=== PATIENT | male | born 1980 | race African-American/Black ===

== ENCOUNTER 2016-08-31 11:13 | Inpatient (IN) | payer BC ==
[2016-08-31 11:29] VITALS: BMI 41.5
--- NOTE | 2016-08-31 12:02 | HP ---
CIWA Score - CIWA Score Nausea/Vomitin Muscle Tremors: 4-Moderate,w/Arms Extend Anxiety: 4-Mod. Anxious/Guarded Agitation: 2 Paroxysmal Sweats: 3 Orientation: 0-Oriented Tacttile Disturbances: 2-Mild Itch/Numbness/Burn Auditory Disturbances: 3-Moderate Harsh/Frighten Visual Disturbances: 0-None Headache: 0-None Present CIWA-Ar Total Score: 20 Admission ROS BHS - HPI Chief Complaint: "I want to get my life together so that I can get into better housing and move on with my life." Pt. is here to Detox from alcohol. Allergies/Adverse Reactions: Allergies Allergy/AdvReac Type Severity Reaction Status Date / Time Fish Containing Products Allergy Severe Swelling Verified 08/31/16 09:45 haloperidol [From Haldol] Allergy Severe Hives Verified 08/31/16 11:48 haloperidol lactate Allergy Severe Hives Verified 08/31/16 11:48 [From Haldol] History of Present Illness: Pt. is a 35 YO male here to Detox from Alcohol. Pt. has had previous detox admissions at [facility]. Pt. also intermittently uses Marijuana. Exam Limitations: Other (Memory Loss due to Head Injury during his teenage years.) - Ebola screening Have you traveled outside of the country in the last 21 days: No Have you had contact with anyone from an Ebola affected area: No Have you been sick,other than usual withdrawal symptoms: No Do you have a fever: No - Review of Systems Constitutional: Diaphoresis, Fever, Malaise, Night Sweats EENT: reports: No Symptoms Reported Respiratory: reports: Productive cough Cardiac: reports: Palpitations GI: reports: Diarrhea, Nausea, Vomiting : reports: No Symptoms Reported Musculoskeletal: reports: No Symptoms Reported Integumentary: reports: No Symptoms Reported Neuro: reports: Headache, Tremors Endocrine: reports: No Symptoms Reported Hematology: reports: No Symptoms Reported Psychiatric: reports: Judgement Intact, Mood/Affect Appropiate, Orientated x3, Anxious, Depressed Other Systems: Reviewed and Negative Patient History - Patient Medical History Hx Anemia: No Hx Asthma: No Hx Chronic Obstructive Pulmonary Disease (COPD): No Hx Cancer: No Hx Cardiac Disorders: No Hx Congestive Heart Failure: No Hx Hypertension: Yes (Treated with Exercise only.) Hx Hypercholesterolemia: No Hx Pacemaker: No HX Cerebrovascular Accident: No Hx Seizures: No Hx Dementia: No Hx Diabetes: No Hx Gastrointestinal Disorders: No Hx Liver Disease: No Hx Genitourinary Disorders: No Hx Sexually Transmitted Disorders: No Hx Renal Disease (ESRD): No Hx Thyroid Disease: No Hx Human Immunodeficiency Virus (HIV): No (Last Tested approx. 6 months ago: NEGATIVE.) Hx Hepatitis C: No (Last Tested approx. 1 year ago: NEGATIVE.) Hx Depression: Yes (On meds.) Hx Suicide Attempt: No (PATIENT DENIES CURRENT SI / HI.) Hx Bipolar Disorder: Yes (No current medication; Prozac and Risperdal in past.) Hx Schizophrenia: No - Patient Surgical History Past Surgical History: No Hx Neurologic Surgery: No Hx Cataract Extraction: No Hx Cardiac Surgery: No Hx Lung Surgery: No Hx Breast Surgery: No Hx Breast Biopsy: No Hx Abdominal Surgery: No Hx Appendectomy: No Hx Cholecystectomy: No Hx Genitourinary Surgery: No Hx Section: No Hx Orthopedic Surgery: Yes (LEFT ANKLE FX) Anesthesia Reaction: No - PPD History Previous Implant?: Yes Documented Results: Negative w/proof Implanted On Prior [facility] Admission?: Yes Date: 06/11/16 Results: 0 MM PPD to be Administered?: No - Reproductive History Patient is a Female of Child Bearing Age (11 -55 yrs old): No (PATIENT IS MALE.) - Smoking Cessation Smoking history: Current every day smoker Have you smoked in the past 12 months: Yes Aproximately how many cigarettes per day: 3 Cigars Per Day: 0 Hx Chewing Tobacco Use: No Initiated information on smoking cessation: Yes 'Breaking Loose' booklet given: 08/31/16 (GIVEN ON UNIT.) - Substance & Tx. History Hx Alcohol Use: Yes Hx Substance Use: Yes Substance Use Type: Alcohol, Marijuana Hx Substance Use Treatment: Yes (Previous Detox admissions at [facility].) - Substances Abused Alcohol Route: Oral Frequency: 3-6 times per week Amount used: 5TH OF SMOOTH (3) 24 Age of first use: 14 Date of Last Use: 08/31/16 Marijuana/Hashish Route: Smoking Frequency: 3-6 times per week Amount used: 3-4 Joints. Age of first use: 15 Date of Last Use: 08/30/16 Family Disease History - Family Disease History Family History: Denies Admission Physical Exam S - Vital Signs Vital Signs: Vital Signs - 24 hr 08/31/16 11:26 Temperature 97.6 F Pulse Rate 70 Respiratory 18 Rate Blood Pressure 128/60 - Physical General Appearance: Yes: Nourished, Appropriately Dressed, Mild Distress, Tremorous, Irritable, Anxious HEENTM: Yes: Hearing grossly Normal, Normocephalic, Normal Voice, JAY, Pharynx Normal Respiratory: Yes: Chest Non-Tender, Lungs Clear, No Respiratory Distress Neck: Yes: No masses,lesions,Nodules, Supple, Trachea in good position Breast: Yes: Breast Exam Deferred Cardiology: Yes: Regular Rhythm, Regular Rate, S1, S2 Abdominal: Yes: Normal Bowel Sounds, Non Tender, Soft, Protuberent Genitourinary: Yes: Within Normal Limits Back: Yes: Normal Inspection Musculoskeletal: Yes: full range of Motion, Gait Steady Extremities: Yes: Normal Range of Motion, Non-Tender, Tremors Neurological: Yes: Fully Oriented, Alert, Normal Mood/Affect, Normal Response Integumentary: Yes: Normal Color, Dry, Warm Lymphatic: Yes: Within Normal Limits - Diagnostic (1) Alcohol dependence with uncomplicated withdrawal Current Visit: Yes Status: Acute (2) Bipolar disorder Current Visit: Yes Status: Chronic Qualifiers: Active/Remission status: remission status unspecified Qualified Code (s): F31.9 - Bipolar disorder, unspecified (3) Cannabis dependence Current Visit: Yes Status: Acute (4) Nicotine dependence Current Visit: Yes Status: Chronic Qualifiers: Nicotine product type: cigarettes Substance use status: uncomplicated Qualified Code(s): F17.210 - Nicotine dependence, cigarettes, uncomplicated (5) History of hypertension Current Visit: Yes Status: Suspected (6) History of head injury Current Visit: Yes Status: Chronic Cleared for Admission [facility] - Detox or Rehab [facility] Level of Care: Medically Managed (ADVISED PATIENT TO FOLLOW-UP WITH [facility] [employer] [facility] / REHAB MEDICAL PROIVDER AFTER DISCHARGE FROM DETOX FOR GENERAL MEDICAL ASSESSMENT.) Detox Regimen/Protocol: Librium [facility] Breath Alcohol Content Breath Alcohol Content: 0 Urine Drug Screen - Results Drug Screen Negative: No Urine Drug Screen Results: THC-Marijuana
[2016-08-31] MEDS ORDERED: LOPERAMIDE HCL 2 MG CAPSULE PO PRN (12:44)
[2016-08-31] MEDS ORDERED: ACETAMINOPHEN 325 MG TABLET (FP) PO PRN (12:44)
[2016-08-31] MEDS ORDERED: guaiFENesin/D-METHORPHAN HB 10 ML UNIT-DOSE CUPS PO PRN (12:44)
[2016-08-31] MEDS ORDERED: diphenhydrAMINE HCL 50 MG CAPSULE PO PRN (12:44)
[2016-08-31] MEDS ORDERED: P-EPHED 60MG/TRIPROLIDI 2.5MG TABLET PO PRN (12:44)
[2016-08-31] MEDS ORDERED: IBUPROFEN 400 MG TABLET (FP) PO PRN (12:44)
[2016-08-31] MEDS ORDERED: chlordiazePOXIDE HCL 25 MG CAPSULE PO PRN (12:44)
[2016-08-31] MEDS ORDERED: hydrOXYzine PAMOATE 50 MG CAPSULE (FP) PO PRN (12:44)
[2016-08-31] MEDS ORDERED: MAGNESIUM HYDROX 2400MG/30ML ORAL SUSPENSION 30 ML CUP PO PRN (12:44)
[2016-08-31] MEDS ORDERED: chlordiazePOXIDE HCL 25 MG CAPSULE PO ONE (12:44)
[2016-08-31] MEDS ORDERED: MAGNESIUM CITRATE 300 ML BOTTLE PO PRN (12:44)
[2016-08-31] MEDS ORDERED: MENTHOL/PHENOL 1 EACH UD MM PRN (12:44)
[2016-08-31] MEDS: NICOTINE 14 MG/24 HOURS TOPICAL PATCH TD SCH (13:32)
[2016-08-31] MEDS: MAG HYDROX/AL HYDROX/SIMETH 30 ML UNIT-DOSE CUP PO PRN (13:37)
[2016-08-31 17:45] LABS: URINE APPEARANCE CLEAR; URINE BILIRUBIN NEGATIVE (NEGATIVE); URINE BLOOD NEGATIVE (NEGATIVE); URINE COLOR STRAW; URINE GLUCOSE (UA) NEGATIVE (NEGATIVE); URINE KETONE NEGATIVE (NEGATIVE); URINE LEUK ESTERASE NEGATIVE (NEGATIVE); URINE NITRITE NEGATIVE (NEGATIVE); URINE PROTEIN NEGATIVE (NEGATIVE); URINE UROBILINOGEN NEGATIVE E.U./dl (0.2-1.0)
[2016-08-31] MEDS: chlordiazePOXIDE HCL 25 MG CAPSULE PO SCH ×2 (18:04→23:20)
[2016-08-31] MEDS: THIAMINE HCL 100 MG TABLET (FP) PO SCH (23:22)
[2016-09-01] MEDS: MAG HYDROX/AL HYDROX/SIMETH 30 ML UNIT-DOSE CUP PO PRN ×2 (05:06→18:37)
[2016-09-01] MEDS: chlordiazePOXIDE HCL 25 MG CAPSULE PO SCH ×4 (06:02→23:12)
[2016-09-01 10:21] LABS: MCH 29.7 pg (25.7-33.7); MCHC 33.8 g/dl (32.0-35.9); MEAN CELL VOLUME 87.9 fl (80-96); MEAN PLT VOLUME 9.4 fl (7.5-11.1); PLATELET COUNT 183 K/MM3 (134-434); RDW 14.3 % (11.9-15.9); WHITE BLOOD COUNT 6.5 K/mm3 (4.0-10.0)
--- NOTE | 2016-09-01 10:37 | PN ---
[facility] CIWA - CIWA Score Nausea/Vomitin Muscle Tremors: 3 Anxiety: 3 Agitation: 2 Paroxysmal Sweats: 1-Minimal Palms Moist Orientation: 0-Oriented Tacttile Disturbances: 1-Very Mild Itch/Numbness Auditory Disturbances: 1-Very Mild Visual Disturbances: 1-Very Mild Sensitivity Headache: 2-Mild CIWA-Ar Total Score: 17 BHS Progress Note (SOAP) Subjective: ALERT,IRRITABLE,ANXIOUS,INTERRUPTED SLEEP,TREMOR Objective: 09/01/16 10:34 Vital Signs Temperature 98.2 F 09/01/16 09:46 Pulse Rate 56 L 09/01/16 09:46 Respiratory Rate 18 09/01/16 09:46 Blood Pressure 125/69 09/01/16 09:46 O2 Sat by Pulse Oximetry (%) EKG NSR 09/01/16 10:36 Assessment: 09/01/16 10:35 Laboratory Last Values WBC 6.5 K/mm3 (4.0-10.0) 09/01/16 08:00 RBC 4.82 M/mm3 (4.00-5.60) 09/01/16 08:00 Hgb 14.3 GM/dL (11.7-16.9) 09/01/16 08:00 Hct 42.4 % (35.4-49) 09/01/16 08:00 MCV 87.9 fl (80-96) 09/01/16 08:00 MCHC 33.8 g/dl (32.0-35.9) 09/01/16 08:00 RDW 14.3 % (11.9-15.9) 09/01/16 08:00 Plt Count 183 K/MM3 (134-434) 09/01/16 08:00 MPV 9.4 fl (7.5-11.1) 09/01/16 08:00 Urine Color Straw 08/31/16 Unknown Urine Appearance Clear 08/31/16 Unknown Urine pH 6.0 (5.0-8.0) 08/31/16 Unknown Ur Specific [place] 1.008 (1.001-1.035) 08/31/16 Unknown Urine Protein Negative (NEGATIVE) 08/31/16 Unknown Urine Glucose (UA) Negative (NEGATIVE) 08/31/16 Unknown Urine Ketones Negative (NEGATIVE) 08/31/16 Unknown Urine Blood Negative (NEGATIVE) 08/31/16 Unknown Urine Nitrite Negative (NEGATIVE) 08/31/16 Unknown Urine Bilirubin Negative (NEGATIVE) 08/31/16 Unknown Urine Urobilinogen Negative E.U./dl (0.2-1.0) 08/31/16 Unknown Ur Leukocyte Esterase Negative (NEGATIVE) 08/31/16 Unknown LABS PENDING 09/01/16 10:36 09/01/16 10:36 WITHDRAWAL SYMPTOM Plan: CONTINUE DETOX
[2016-09-01] MEDS: PRENATAL VITAMINS W/ FOLIC ACID TABLET (FP) PO SCH (10:38)
[2016-09-01] MEDS: NICOTINE 14 MG/24 HOURS TOPICAL PATCH TD SCH (10:38)
[2016-09-01 10:59] LABS: ALBUMIN 3.2 g/dl (3.4-5.0); ALK PHOS 70 U/L (45-117); ANION GAP 10 (8-16); BILIRUBIN,TOTAL 0.3 mg/dL (0.2-1.0); CALCIUM 8.6 mg/dL (8.5-10.1); CO2 28 mmol/L (21-32); CREATININE 1.1 mg/dL (0.7-1.3); GLUCOSE,RANDOM 86 mg/dL (74-106); SGOT/AST 23 U/L (15-37); SGPT/ALT 50 U/L (12-78); TOT PROT 6.6 g/dl (6.4-8.2)
[2016-09-01 11:24] LABS: HIV 1 & 2 AB NEGATIVE; HIV 1 AGp24 NEGATIVE
[2016-09-01] MEDS: AMMONIUM LACTATE 12% LOTION 225 GM BOTTLE TP SCH (11:56)
[2016-09-01] MEDS: THIAMINE HCL 100 MG TABLET (FP) PO SCH (22:55)
[2016-09-02] MEDS: chlordiazePOXIDE HCL 25 MG CAPSULE PO SCH ×2 (05:22→10:23)
[2016-09-02] MEDS: MAG HYDROX/AL HYDROX/SIMETH 30 ML UNIT-DOSE CUP PO PRN ×2 (05:31→17:22)
[2016-09-02] MEDS ORDERED: ZOLPIDEM TARTRATE 5 MG TABLET PO PRN (08:08)
--- NOTE | 2016-09-02 10:19 | PN ---
S CIWA - CIWA Score Nausea/Vomitin-No Nausea/No Vomiting Muscle Tremors: 4-Moderate,w/Arms Extend Anxiety: 3 Agitation: 3 Paroxysmal Sweats: 3 Orientation: 0-Oriented Tacttile Disturbances: 0-None Auditory Disturbances: 0-None Visual Disturbances: 0-None Headache: 0-None Present CIWA-Ar Total Score: 13 BHS Progress Note (SOAP) Subjective: shakes sweats irritable agitation nausea Objective: 09/02/16 10:19 Vital Signs Temperature 98.2 F 09/02/16 10:10 Pulse Rate 73 09/02/16 10:10 Respiratory Rate 16 09/02/16 10:10 Blood Pressure 122/76 09/02/16 10:10 O2 Sat by Pulse Oximetry (%) Laboratory Tests 08/31/16 09/01/16 09/01/16 Unknown 08:00 08:00 WBC 6.5 RBC 4.82 Hgb 14.3 Hct 42.4 MCV 87.9 MCHC 33.8 RDW 14.3 Plt Count 183 MPV 9.4 Sodium Potassium Chloride Carbon Dioxide Anion Gap BUN Creatinine Creat Clearance w eGFR Random Glucose Calcium Total Bilirubin AST ALT Alkaline Phosphatase Total Protein Albumin Urine Color Straw Urine Appearance Clear Urine pH 6.0 Ur Specific [place] 1.008 Urine Protein Negative Urine Glucose (UA) Negative Urine Ketones Negative Urine Blood Negative Urine Nitrite Negative Urine Bilirubin Negative Urine Urobilinogen Negative Ur Leukocyte Esterase Negative RPR Titer HIV 1&2 Antibody Screen Negative HIV P24 Antigen Negative 09/01/16 09/01/16 08:00 08:00 WBC RBC Hgb Hct MCV MCHC RDW Plt Count MPV Sodium 141 Potassium 4.3 Chloride 103 Carbon Dioxide 28 Anion Gap 10 BUN 10 Creatinine 1.1 Creat Clearance w eGFR > 60 Random Glucose 86 Calcium 8.6 Total Bilirubin 0.3 D AST 23 ALT 50 Alkaline Phosphatase 70 D Total Protein 6.6 Albumin 3.2 L Urine Color Urine Appearance Urine pH Ur Specific [place] Urine Protein Urine Glucose (UA) Urine Ketones Urine Blood Urine Nitrite Urine Bilirubin Urine Urobilinogen Ur Leukocyte Esterase RPR Titer Nonreactive HIV 1&2 Antibody Screen HIV P24 Antigen awake/alert ambulating no acute distress Assessment: 09/02/16 10:19 withdrawal sx Plan: continue detox increase fluids zofran prn
[2016-09-02] MEDS: NICOTINE 14 MG/24 HOURS TOPICAL PATCH TD SCH (10:23)
[2016-09-02] MEDS: FLUoxetine HCL 10 MG CAPSULE (FP) PO SCH (10:23)
[2016-09-02] MEDS: PRENATAL VITAMINS W/ FOLIC ACID TABLET (FP) PO SCH (10:23)
[2016-09-02] MEDS: AMMONIUM LACTATE 12% LOTION 225 GM BOTTLE TP SCH (10:25)
[2016-09-02] MEDS ORDERED: ONDANSETRON *ODT* 4 MG TABLET SL PRN (10:33)
--- NOTE | 2016-09-02 11:32 | EKG ---
Test Reason : Blood Pressure : / mmHG Vent. Rate : 065 BPM Atrial Rate : 065 BPM P-R Int : 172 ms QRS Dur : 080 ms QT Int : 406 ms P-R-T Axes : 062 032 009 degrees QTc Int : 422 ms NORMAL SINUS RHYTHM NONSPECIFIC T WAVE ABNORMALITY ABNORMAL ECG NO PREVIOUS ECGS AVAILABLE Confirmed by ITA BAH MD ([id number]) on 09/02/2016 11:31:47 AM Referred By: Confirmed By:ITA BAH MD
--- NOTE | 2016-09-02 12:25 | CONSULT ---
[facility] Psychiatric Consult - Data Date of interview: 09/02/16 Admission source: [facility] Identifying data: This is 35 years old male with Bipolar Disorder history intoxicated with: Alcohol, Cannabis, Cocaine and PCP Substance Abuse History: Smoking Cessation. Smoking history: Current every day smoker. Have you smoked in the past 12 months: Yes. Aproximately how many cigarettes per day: 3. Cigars Per Day: 0. Hx Chewing Tobacco Use: No. Initiated information on smoking cessation: Yes. 'Breaking Loose' booklet given : 08/31/16 (GIVEN ON UNIT.). - Substance & Tx. History. Hx Alcohol Use: Yes. Hx Substance Use: Yes. Substance Use Type: Alcohol, Marijuana. Hx Substance Use Treatment: Yes (Previous Detox admissions at [facility] - Substances Abused. Alcohol. Route: Oral. Frequency: 3-6 times per week. Amount used: 5TH OF SMOOTH (3) 24. Age of first use: 14. Date of Last Use: 08/31/16. Marijuana/Hashish. Route: Smoking. Frequency: 3-6 times per week. Amount used : 3-4 Joints. Age of first use: 15. Date of Last Use: 08/30/16 Medical History: Head injury history, HTN Psychiatric History: Patient reports abhinav carry Bipolar disorder, preoccupied with medications, reports most recent admission at unknown historl, reports taking prior to admissions: Seroquel 25mg po qhs. Prozac 10mg poqd. ASmbien 10mg po qhs. Patient preoccupied with medications side affectes Physical/Sexual Abuse/Trauma History: Denies Additional Comment: Seroquel 25mg po qhs. Prozac 10mg poqd. ASmbien 10mg po qhs Mental Status Exam - Mental Status Exam Additional Comments: Seroquel 25mg po qhs. Prozac 10mg poqd. ASmbien 10mg po qhs Psychiatric Findings - Problem List ([place] 1, 2,3) (1) Alcohol dependence with uncomplicated withdrawal Current Visit: Yes Status: Acute (2) Cannabis dependence Current Visit: Yes Status: Acute (3) Bipolar disorder Current Visit: Yes Status: Chronic Qualifiers: Active/Remission status: remission status unspecified Qualified Code (s): F31.9 - Bipolar disorder, unspecified (4) Nicotine dependence Current Visit: Yes Status: Chronic Qualifiers: Nicotine product type: cigarettes Substance use status: uncomplicated Qualified Code(s): F17.210 - Nicotine dependence, cigarettes, uncomplicated (5) History of hypertension Current Visit: Yes Status: Suspected (6) Cocaine dependence Current Visit: No Status: Chronic Qualifiers: Substance use status: uncomplicated Qualified Code(s): F14.20 - Cocaine dependence, uncomplicated (7) PCP (phencyclidine) abuse Current Visit: No Status: Chronic - Initial Treatment Plan Initial Treatment Plan: Seroquel 25mg po qhs. Prozac 10mg poqd. ASmbien 10mg po qhs
[2016-09-02] MEDS: chlordiazePOXIDE 5 MG CAPSULE PO SCH ×2 (17:22→23:07)
[2016-09-02] MEDS: NICOTINE POLACRILEX 2 MG GUM BUC PRN ×2 (17:22→23:11)
[2016-09-02] MEDS ORDERED: ZOLPIDEM TARTRATE 10 MG TABLET (PARK CARE ONLY) PO PRN (22:00)
[2016-09-02] MEDS ORDERED: QUEtiapine FUMARATE 25 MG TABLET (FP) PO SCH (22:00)
[2016-09-02] MEDS: THIAMINE HCL 100 MG TABLET (FP) PO SCH (23:09)
[2016-09-03] MEDS: chlordiazePOXIDE 5 MG CAPSULE PO SCH ×2 (05:45→10:21)
[2016-09-03] MEDS: NICOTINE POLACRILEX 2 MG GUM BUC PRN (07:49)
[2016-09-03] MEDS: PRENATAL VITAMINS W/ FOLIC ACID TABLET (FP) PO SCH (10:19)
[2016-09-03] MEDS: FLUoxetine HCL 10 MG CAPSULE (FP) PO SCH (10:20)
[2016-09-03] MEDS: NICOTINE 14 MG/24 HOURS TOPICAL PATCH TD SCH (10:20)
[2016-09-03] MEDS: AMMONIUM LACTATE 12% LOTION 225 GM BOTTLE TP SCH (10:21)
--- NOTE | 2016-09-03 12:15 | PN ---
BHS Progress Note (SOAP) Subjective: interrupted sleep, sweats, headache Objective: 09/03/16 12:12 Vital Signs Temperature 97.9 F 09/03/16 09:51 Pulse Rate 113 H 09/03/16 09:51 Respiratory Rate 16 09/03/16 09:51 Blood Pressure 140/78 09/03/16 09:51 O2 Sat by Pulse Oximetry (%) Laboratory Tests 08/31/16 09/01/16 09/01/16 Unknown 08:00 08:00 WBC RBC Hgb Hct MCV MCHC RDW Plt Count MPV Sodium Potassium Chloride Carbon Dioxide Anion Gap BUN Creatinine Creat Clearance w eGFR Random Glucose Calcium Total Bilirubin AST ALT Alkaline Phosphatase Total Protein Albumin Urine Color Straw Urine Appearance Clear Urine pH 6.0 Ur Specific [place] 1.008 Urine Protein Negative Urine Glucose (UA) Negative Urine Ketones Negative Urine Blood Negative Urine Nitrite Negative Urine Bilirubin Negative Urine Urobilinogen Negative Ur Leukocyte Esterase Negative RPR Titer Hepatitis C Antibody 0.2 HIV 1&2 Antibody Screen Negative HIV P24 Antigen Negative 09/01/16 09/01/16 09/01/16 08:00 08:00 08:00 WBC 6.5 RBC 4.82 Hgb 14.3 Hct 42.4 MCV 87.9 MCHC 33.8 RDW 14.3 Plt Count 183 MPV 9.4 Sodium 141 Potassium 4.3 Chloride 103 Carbon Dioxide 28 Anion Gap 10 BUN 10 Creatinine 1.1 Creat Clearance w eGFR > 60 Random Glucose 86 Calcium 8.6 Total Bilirubin 0.3 D AST 23 ALT 50 Alkaline Phosphatase 70 D Total Protein 6.6 Albumin 3.2 L Urine Color Urine Appearance Urine pH Ur Specific [place] Urine Protein Urine Glucose (UA) Urine Ketones Urine Blood Urine Nitrite Urine Bilirubin Urine Urobilinogen Ur Leukocyte Esterase RPR Titer Nonreactive Hepatitis C Antibody HIV 1&2 Antibody Screen HIV P24 Antigen pt aox3 in nad , lying in bed Assessment: 09/03/16 12:13 withdrawal sx;s Plan: cont. detox increase fluids motrin prn d/c in am
[2016-09-03 14:20] VITALS: BP 134/70; PULSE 90; TEMP 98.1
[2016-09-03] MEDS ORDERED: chlordiazePOXIDE HCL 10 MG CAPSULE PO SCH (17:00)
--- NOTE | 2016-09-04 16:53 | DS ---
[facility] Detox Discharge Summary Admission Date: 08/31/16 Discharge Date: 09/03/16 - History Present History: Alcohol Dependence, Cannabis Dependence, Pcp Dependence Pertinent Past History: HTN Hyperlipidemia - Physical Exam Results Vital Signs: Vital Signs Temperature 98.1 F 09/03/16 14:19 Pulse Rate 90 09/03/16 14:19 Respiratory Rate 20 09/03/16 14:19 Blood Pressure 134/70 09/03/16 14:19 O2 Sat by Pulse Oximetry (%) Pertinent Admission Physical Exam Findings: Withdrawal sx. Laboratory Last Values WBC 6.5 K/mm3 (4.0-10.0) 09/01/16 08:00 RBC 4.82 M/mm3 (4.00-5.60) 09/01/16 08:00 Hgb 14.3 GM/dL (11.7-16.9) 09/01/16 08:00 Hct 42.4 % (35.4-49) 09/01/16 08:00 MCV 87.9 fl (80-96) 09/01/16 08:00 MCHC 33.8 g/dl (32.0-35.9) 09/01/16 08:00 RDW 14.3 % (11.9-15.9) 09/01/16 08:00 Plt Count 183 K/MM3 (134-434) 09/01/16 08:00 MPV 9.4 fl (7.5-11.1) 09/01/16 08:00 Sodium 141 mmol/L (136-145) 09/01/16 08:00 Potassium 4.3 mmol/L (3.5-5.1) 09/01/16 08:00 Chloride 103 mmol/L (98-107) 09/01/16 08:00 Carbon Dioxide 28 mmol/L (21-32) 09/01/16 08:00 Anion Gap 10 (8-16) 09/01/16 08:00 BUN 10 mg/dL (7-18) 09/01/16 08:00 Creatinine 1.1 mg/dL (0.7-1.3) 09/01/16 08:00 Creat Clearance w eGFR > 60 (>60) 09/01/16 08:00 Random Glucose 86 mg/dL (74-106) 09/01/16 08:00 Calcium 8.6 mg/dL (8.5-10.1) 09/01/16 08:00 Total Bilirubin 0.3 mg/dL (0.2-1.0) D 09/01/16 08:00 AST 23 U/L (15-37) 09/01/16 08:00 ALT 50 U/L (12-78) 09/01/16 08:00 Alkaline Phosphatase 70 U/L (45-117) D 09/01/16 08:00 Total Protein 6.6 g/dl (6.4-8.2) 09/01/16 08:00 Albumin 3.2 g/dl (3.4-5.0) L 09/01/16 08:00 Urine Color Straw 08/31/16 Unknown Urine Appearance Clear 08/31/16 Unknown Urine pH 6.0 (5.0-8.0) 08/31/16 Unknown Ur Specific [place] 1.008 (1.001-1.035) 08/31/16 Unknown Urine Protein Negative (NEGATIVE) 08/31/16 Unknown Urine Glucose (UA) Negative (NEGATIVE) 08/31/16 Unknown Urine Ketones Negative (NEGATIVE) 08/31/16 Unknown Urine Blood Negative (NEGATIVE) 08/31/16 Unknown Urine Nitrite Negative (NEGATIVE) 08/31/16 Unknown Urine Bilirubin Negative (NEGATIVE) 08/31/16 Unknown Urine Urobilinogen Negative E.U./dl (0.2-1.0) 08/31/16 Unknown Ur Leukocyte Esterase Negative (NEGATIVE) 08/31/16 Unknown RPR Titer Nonreactive (NONREACTIVE) 09/01/16 08:00 Hepatitis C Antibody 0.2 s/co ratio (0.0-0.9) 09/01/16 08:00 HIV 1&2 Antibody Screen Negative 09/01/16 08:00 HIV P24 Antigen Negative 09/01/16 08:00 labs noted - Treatment Hospital Course: Detox Protocol Followed, Detoxed Safely, Responded well, Discharged Condition Good, Rehab Referral Accepted Patient has Accepted a Rehab Referral to: [facility] [place] - Medication Discharge Medications: Ambulatory Orders Benztropine Mesylate [Cogentin -] 1 mg PO HS 06/09/16 Risperidone [Risperdal -] 1 mg PO HS 06/09/16 Zolpidem Tartrate [Ambien] 10 mg PO HS 06/09/16 Fluoxetine HCl [Prozac -] 10 mg PO DAILY #30 capsule 06/10/16 Lorazepam [Ativan] 2 mg PO PRN 08/31/16 Quetiapine Fumarate [Seroquel -] 50 mg PO HS 08/31/16 Fluoxetine HCl [Prozac -] 10 mg PO DAILY #30 capsule 09/02/16 Quetiapine Fumarate [Seroquel -] 25 mg PO HS #30 tablet 09/02/16 Zolpidem Tartrate [Ambien] 10 mg PO HS #14 tablet MDD 10 09/02/16 - Diagnosis (1) Alcohol dependence with uncomplicated withdrawal Status: Acute (2) Cannabis dependence Status: Acute (3) HTN (hypertension) Status: Acute Qualifiers: Hypertension type: essential hypertension Qualified Code(s): I10 - Essential (primary) hypertension (4) Bipolar disorder Status: Chronic Qualifiers: Active/Remission status: remission status unspecified Qualified Code (s): F31.9 - Bipolar disorder, unspecified (5) Cocaine dependence Status: Chronic Qualifiers: Substance use status: uncomplicated Qualified Code(s): F14.20 - Cocaine dependence, uncomplicated (6) Hyperlipidemia Status: Chronic (7) Nicotine dependence Status: Chronic Qualifiers: Nicotine product type: cigarettes Substance use status: uncomplicated Qualified Code(s): F17.210 - Nicotine dependence, cigarettes, uncomplicated (8) PCP (phencyclidine) abuse Status: Chronic - AMA Did Patient Leave Against Medical Advice: No
== END 2016-09-03 14:50 | disposition home or self-care (01) | DRG 774 ==
LOC: YASAS 11:13 → Y6N 11:50
PROVIDERS: ADMIT Internal Medicine; ATTEND Internal Medicine
PROC: HZ2ZZZZ Detoxification Services for Substance Abuse Treatment (ICD-10-PCS; principal; 2016-09-03)
DX: F10.230 Alcohol dependence with withdrawal, uncomplicated (principal); F14.20 Cocaine dependence, uncomplicated; F12.20 Cannabis dependence, uncomplicated; F17.210 Nicotine dependence, cigarettes, uncomplicated; F16.10 Hallucinogen abuse, uncomplicated; F31.9 Bipolar disorder, unspecified; I10 Essential (primary) hypertension
CPT/HCPCS: 36415; 80053; 81003; 85027; 86593; 87389; 93005; 93010

== ENCOUNTER 2018-03-29 09:11 | Inpatient (IN) | payer BC, OTHER ==
[2018-03-29 09:36] VITALS: BMI 38.3
--- NOTE | 2018-03-29 10:11 | HP ---
CIWA Score - CIWA Score Nausea/Vomitin Muscle Tremors: 3 Anxiety: 2 Agitation: 2 Paroxysmal Sweats: 1-Minimal Palms Moist Orientation: 0-Oriented Tacttile Disturbances: 1-Very Mild Itch/Numbness Auditory Disturbances: 1-Very Mild Visual Disturbances: 0-None Headache: 2-Mild CIWA-Ar Total Score: 14 Admission ROS BHS - HPI Chief Complaint: i need help to stop drinking alcohol and marijuana Allergies/Adverse Reactions: Allergies Allergy/AdvReac Type Severity Reaction Status Date / Time Fish Containing Products Allergy Severe Swelling Verified 03/29/18 10:06 haloperidol [From Haldol] Allergy Severe Hives Verified 03/29/18 10:06 haloperidol lactate Allergy Severe Hives Verified 03/29/18 10:06 [From Haldol] History of Present Illness: this 37 years old male with alcohol and marijuana dependence,seeking detox, withdrawal symptom,last detox [facility] 12/14 not completed bipolar disorder nicotine dependence had admission in detox before longest period of sobriety seen in [place] last night refer to come for detox Exam Limitations: No Limitations - Ebola screening Have you traveled outside of the country in the last 21 days: No Have you been sick,other than usual withdrawal symptoms: No - Review of Systems Constitutional: Loss of Appetite, Malaise, Night Sweats, Changes in sleep, Weakness EENT: reports: Nose Congestion Respiratory: reports: No Symptoms reported Cardiac: reports: No Symptoms Reported GI: reports: Nausea, Abdominal cramping Musculoskeletal: reports: Back Pain, Muscle Pain Integumentary: reports: Dryness Neuro: reports: Headache, Tremors Endocrine: reports: No Symptoms Reported Hematology: reports: No Symptoms Reported Psychiatric: reports: No Sypmtoms Reported, Judgement Intact, Mood/Affect Appropiate, Orientated x3 (bipolar disorder) Patient History - Patient Medical History Hx Anemia: No Hx Asthma: No Hx Chronic Obstructive Pulmonary Disease (COPD): No Hx Cancer: No Hx Cardiac Disorders: No Hx Congestive Heart Failure: No Hx Hypertension: Yes (Treated with Exercise only.no med) Hx Hypercholesterolemia: No Hx Pacemaker: No HX Cerebrovascular Accident: No Hx Seizures: No Hx Dementia: No Hx Diabetes: No Hx Gastrointestinal Disorders: No Hx Liver Disease: No Hx Genitourinary Disorders: No Hx Sexually Transmitted Disorders: No Hx Renal Disease (ESRD): No Hx Thyroid Disease: No Hx Human Immunodeficiency Virus (HIV): No (2017 negative) Hx Hepatitis C: No (Last Tested approx. 1 year ago: NEGATIVE.) Hx Depression: Yes (On meds.) Hx Suicide Attempt: No (PATIENT DENIES CURRENT SI / HI.) Hx Bipolar Disorder: Yes (No current medication; Prozac and Risperdal in past.) Hx Schizophrenia: No Other Medical History: no suicidal,no homicidal - Patient Surgical History Past Surgical History: No Hx Neurologic Surgery: No Hx Cataract Extraction: No Hx Cardiac Surgery: No Hx Lung Surgery: No Hx Breast Surgery: No Hx Breast Biopsy: No Hx Abdominal Surgery: No Hx Appendectomy: No Hx Cholecystectomy: No Hx Genitourinary Surgery: No Hx Section: No Hx Orthopedic Surgery: Yes (LEFT ANKLE FX at age 13 uears) Anesthesia Reaction: No - PPD History Previous Implant?: Yes Implanted On Prior [facility] Admission?: Yes Date: 06/11/16 Results: 0 MM PPD to be Administered?: Yes - Smoking Cessation Smoking history: Current every day smoker Have you smoked in the past 12 months: Yes Aproximately how many cigarettes per day: 3 Cigars Per Day: 0 Hx Chewing Tobacco Use: No Initiated information on smoking cessation: Yes 'Breaking Loose' booklet given: 03/29/18 - Substance & Tx. History Hx Alcohol Use: Yes Hx Substance Use: Yes Substance Use Type: Alcohol, Marijuana Hx Substance Use Treatment: Yes ([facility] 12/14 not completed) - Substances Abused Alcohol Route: Oral Frequency: Daily Amount used: 1/ vodka Age of first use: 16 Date of Last Use: 03/28/18 Marijuana/Hashish Route: Smoking Frequency: 3-6 times per week Amount used: 1 patrick bag Age of first use: 18 Date of Last Use: 03/22/18 Family Disease History - Family Disease History Family Disease History: Diabetes: Grandparent, Other: Father (Arthritis.), Mother (Dialysis.) Admission Physical Exam S - Vital Signs Vital Signs: Vital Signs - 24 hr 03/29/18 09:24 Temperature 98.8 F Pulse Rate 79 Respiratory 19 Rate Blood Pressure 121/69 - Physical General Appearance: Yes: Moderate Distress, Tremorous, Irritable, Anxious HEENTM: Yes: Normal ENT Inspection, JAY, Pharynx Normal Respiratory: Yes: Within Normal Limits, Lungs Clear, Normal Breath Sounds Neck: Yes: Within Normal Limits, Supple, Trachea in good position Breast: Yes: Within Normal Limits Cardiology: Yes: Within Normal Limits, Regular Rhythm, Regular Rate, S1, S2 Abdominal: Yes: Within Normal Limits, Non Tender, Flat, Soft Genitourinary: Yes: Within Normal Limits Back: Yes: Muscle Spasm Extremities: Yes: Within Normal Limits, Normal Range of Motion, Tremors Neurological: Yes: junior technical writer II-XII NML intact, Alert, Motor Strength 5/5 Integumentary: Yes: Dry Lymphatic: Yes: Within Normal Limits - Diagnostic (1) Alcohol dependence with uncomplicated withdrawal Current Visit: No Status: Acute (2) Cannabis dependence Current Visit: No Status: Acute (3) HTN (hypertension) Current Visit: No Status: Acute Qualifiers: Hypertension type: essential hypertension Qualified Code(s): I10 - Essential (primary) hypertension (4) Bipolar disorder Current Visit: No Status: Chronic Qualifiers: Active/Remission status: remission status unspecified Qualified Code(s): F31.9 - Bipolar disorder, unspecified (5) Nicotine dependence Current Visit: No Status: Chronic Qualifiers: Nicotine product type: cigarettes Substance use status: uncomplicated Qualified Code(s): F17.210 - Nicotine dependence, cigarettes, uncomplicated Cleared for Admission S - Detox or Rehab [facility] Level of Care: Medically Managed Detox Regimen/Protocol: Librium [facility] Breath Alcohol Content Breath Alcohol Content: 0.065 Urine Drug Screen - Results Drug Screen Negative: No Urine Drug Screen Results: THC-Marijuana
[2018-03-29] MEDS ORDERED: hydrOXYzine PAMOATE 50 MG CAPSULE (FP) PO PRN (10:24)
[2018-03-29] MEDS ORDERED: MAGNESIUM CITRATE 300 ML BOTTLE PO PRN (10:24)
[2018-03-29] MEDS ORDERED: IBUPROFEN 400 MG TABLET (FP) PO PRN (10:24)
[2018-03-29] MEDS ORDERED: MENTHOL/PHENOL 1 EACH UD MM PRN (10:24)
[2018-03-29] MEDS ORDERED: LOPERAMIDE HCL 2 MG CAPSULE PO PRN (10:24)
[2018-03-29] MEDS ORDERED: ACETAMINOPHEN 325 MG TABLET (FP) PO PRN (10:24)
[2018-03-29] MEDS ORDERED: MAGNESIUM HYDROX 2400MG/30ML ORAL SUSPENSION 30 ML CUP PO PRN (10:24)
[2018-03-29] MEDS ORDERED: NICOTINE POLACRILEX 2 MG GUM BUC PRN (10:24)
[2018-03-29] MEDS ORDERED: guaiFENesin/D-METHORPHAN HB 10 ML UNIT-DOSE CUPS PO PRN (10:24)
[2018-03-29] MEDS ORDERED: chlordiazePOXIDE HCL 25 MG CAPSULE PO PRN (10:24)
[2018-03-29] MEDS ORDERED: MAG HYDROX/AL HYDROX/SIMETH 30 ML UNIT-DOSE CUP PO PRN (10:24)
[2018-03-29] MEDS ORDERED: P-EPHED 60MG/TRIPROLIDI 2.5MG TABLET PO PRN (10:24)
[2018-03-29] MEDS: chlordiazePOXIDE HCL 25 MG CAPSULE PO SCH ×3 (11:30→22:49)
[2018-03-29 17:39] LABS: URINE APPEARANCE CLEAR; URINE BILIRUBIN NEGATIVE (<2.0 mg/dL); URINE COLOR LTYELLOW; URINE GLUCOSE (UA) NEGATIVE (NEGATIVE); URINE KETONE NEGATIVE (NEGATIVE); URINE LEUK ESTERASE NEGATIVE (NEGATIVE); URINE NITRITE NEGATIVE (NEGATIVE); URINE PROTEIN NEGATIVE (NEGATIVE); URINE UROBILINOGEN NEGATIVE mg/dL (0.2-1.0)
[2018-03-29] MEDS ORDERED: MELATONIN 5 MG TABLETS PO PRN (22:00)
[2018-03-29] MEDS: THIAMINE HCL 100 MG TABLET (FP) PO SCH (22:49)
[2018-03-30] MEDS: chlordiazePOXIDE HCL 25 MG CAPSULE PO SCH ×4 (06:03→22:12)
[2018-03-30 10:20] LABS: HEMATOCRIT 46.1 % (35.4-49); HEMOGLOBIN 14.8 GM/dL (11.7-16.9); MCH 28.3 pg (25.7-33.7); MCHC 32.1 g/dl (32.0-35.9); MEAN CELL VOLUME 88.2 fl (80-96); MEAN PLT VOLUME 9.3 fl (7.5-11.1); PLATELET COUNT 207 K/MM3 (134-434); RBC 5.23 M/mm3 (4.00-5.60); RDW 14.3 % (11.9-15.9); WHITE BLOOD COUNT 6.7 K/mm3 (4.0-10.0)
[2018-03-30 10:36] LABS: ALBUMIN 3.4 g/dl (3.4-5.0); ALK PHOS 72 U/L (45-117); ANION GAP 11 MMOL/L (8-16); BILIRUBIN,TOTAL 0.4 mg/dL (0.2-1); BLOOD UREA NITROGEN 9 mg/dL (7-18); CALCIUM 9.3 mg/dL (8.5-10.1); CHLORIDE 106 mmol/L (98-107); CO2 23 mmol/L (21-32); CREATININE 1.1 mg/dL (0.55-1.3); GLUCOSE,RANDOM 104 mg/dL (74-106); POTASSIUM 4.2 mmol/L (3.5-5.1); SGOT/AST 33 U/L (15-37); SGPT/ALT 59 U/L (13-61); SODIUM 140 mmol/L (136-145); TOT PROT 6.8 g/dl (6.4-8.2)
[2018-03-30] MEDS: PRENATAL VITAMINS W/ FOLIC ACID TABLET (FP) PO SCH (11:31)
[2018-03-30] MEDS ORDERED: FLU VACCINE QUAD 60 MCG/0.5 ML (MDV 18-19) IM ONE (12:00)
--- NOTE | 2018-03-30 14:10 | CONSULT ---
[facility] Psychiatric Consult - Data Date of interview: 03/30/18 Admission source: [facility] Identifying data: Readmission to [facility] for this 37 y/o AA male self- referred for detoxification treatment (alcohol,cannabis).Admitted to [address] [place] [address].Patient is single without dependents,homeless,unemployed and supported on SSI benefits. Substance Abuse History: Discussed with the patient in this session.Mr Avendano confirms a long-standing history of alcohol and marihuana abuse.Details in current [facility] report : Smoking history: Current every day smoker. Have you smoked in the past 12 months: Yes. Aproximately how many cigarettes per day: 3. Cigars Per Day: 0. Hx Chewing Tobacco Use: No. Initiated information on smoking cessation: Yes. 'Breaking Loose' booklet given: 03/29/18. - Substance & Tx. History. Hx Alcohol Use: Yes. Hx Substance Use: Yes. Substance Use Type : Alcohol, Marijuana. Hx Substance Use Treatment: Yes ([facility] 12/14 not completed). - Substances Abused. Alcohol. Route: Oral. Frequency: Daily. Amount used: / vodka. Age of first use: 16. Date of Last Use: 03/28/18. Marijuana/Hashish. Route: Smoking. Frequency: 3-6 times per week. Amount used: 1 patrick bag. Age of first use: 18. Date of Last Use: 03/22/18 Medical History: Hypertension and obesity. Psychiatric History: Patient admits to a history of multiple psychiatric hospitalizations ([facility]).Diagnosed with Bipolar Disorder.Mr Avendano informs that he gets his psychiatric outpatient services at the [facility] in the [place].Managed on a regimen of olanzapine 10 mg/day + prozac 10 mg/day.Patient denies history of suicide attempts. Physical/Sexual Abuse/Trauma History: Patient denies. Additional Comment: Urine Drug Screen Results: THC-Marijuana.Noted. Mental Status Exam - Mental Status Exam Alert and Oriented to: Time, Place, Person Cognitive Function: Good Patient Appearance: Unkempt, Disheveled Mood: Hostile, Withdrawn, Irritable Affect: Blunted Patient Behavior: Guarded (hypervigilant), Suspicious (initially aloof but became more relaxed and cooperative as the interview progresses) Speech Pattern: Clear, Inappropriate Voice Loudness: Normal Thought Process: Circumstantial, Goal Oriented Thought Disorder: Present, Paranoid Ideation, Bizarre Hallucinations: Denies Suicidal Ideation: Denies Homicidal Ideation: Denies Insight/Judgement: Poor Sleep: Well Appetite: Good Muscle strength/Tone: Normal Gait/Station: Normal Psychiatric Findings - Problem List ([place] 1, 2,3) (1) Alcohol dependence with uncomplicated withdrawal Current Visit: Yes Status: Acute (2) Cannabis dependence Current Visit: Yes Status: Acute (3) Nicotine dependence Current Visit: Yes Status: Acute Qualifiers: Nicotine product type: cigarettes Substance use status: uncomplicated Qualified Code(s): F17.210 - Nicotine dependence, cigarettes, uncomplicated (4) Bipolar disorder Current Visit: Yes Status: Chronic Qualifiers: Active/Remission status: remission status unspecified Qualified Code(s): F31.9 - Bipolar disorder, unspecified - Initial Treatment Plan Initial Treatment Plan: Records at [facility] : revisited.Psychiatric interview conducted with medical students in attendance (patient consented verbally) .Psychoeducation.Sleep hygiene.Detoxification in progress.Patient expresses the wish to resume his medications.Ordered : zyprexa 10 mg po daily + prozac 10 mg po daily.Side effects/benefits of both drugs are discussed with the patient.Mr Avendano is in agreement with this careplan.Observation.
[2018-03-30] MEDS ORDERED: OLANZapine 5 MG TABLET PO ONE (14:16)
--- NOTE | 2018-03-30 15:48 | PN ---
S CIWA - CIWA Score Nausea/Vomitin Muscle Tremors: 3 Anxiety: 4-Mod. Anxious/Guarded Agitation: 5 Paroxysmal Sweats: 2 Orientation: 0-Oriented Tacttile Disturbances: 0-None Auditory Disturbances: 0-None Visual Disturbances: 0-None Headache: 0-None Present CIWA-Ar Total Score: 17 S Progress Note (SOAP) Subjective: NO COMPLAINTS OFFERED Objective: 03/30/18 15:40 vERY AGITATED AND ANXIOUS HOSTILE, REPEATEDLY STATING "WHAT, WHAT DO YOU WANT" DESPITE BEING TOLD THAT I WAS THE PROVIDER AND CHECKING UP ON HIM. Vital Signs Temperature 98.4 F 03/30/18 13:30 Pulse Rate 60 03/30/18 13:30 Respiratory Rate 18 03/30/18 13:30 Blood Pressure 129/84 03/30/18 13:30 O2 Sat by Pulse Oximetry (%) Laboratory Last Values WBC 6.7 K/mm3 (4.0-10.0) 03/30/18 07:00 RBC 5.23 M/mm3 (4.00-5.60) 03/30/18 07:00 Hgb 14.8 GM/dL (11.7-16.9) 03/30/18 07:00 Hct 46.1 % (35.4-49) 03/30/18 07:00 MCV 88.2 fl (80-96) 03/30/18 07:00 MCH 28.3 pg (25.7-33.7) 03/30/18 07:00 MCHC 32.1 g/dl (32.0-35.9) 03/30/18 07:00 RDW 14.3 % (11.9-15.9) 03/30/18 07:00 Plt Count 207 K/MM3 (134-434) 03/30/18 07:00 MPV 9.3 fl (7.5-11.1) 03/30/18 07:00 Sodium 140 mmol/L (136-145) 03/30/18 07:00 Potassium 4.2 mmol/L (3.5-5.1) 03/30/18 07:00 Chloride 106 mmol/L (98-107) 03/30/18 07:00 Carbon Dioxide 23 mmol/L (21-32) 03/30/18 07:00 Anion Gap 11 MMOL/L (8-16) 03/30/18 07:00 BUN 9 mg/dL (7-18) 03/30/18 07:00 Creatinine 1.1 mg/dL (0.55-1.3) 03/30/18 07:00 Creat Clearance w eGFR > 60 (>60) 03/30/18 07:00 Random Glucose 104 mg/dL (74-106) 03/30/18 07:00 Calcium 9.3 mg/dL (8.5-10.1) 03/30/18 07:00 Total Bilirubin 0.4 mg/dL (0.2-1) 03/30/18 07:00 AST 33 U/L (15-37) 03/30/18 07:00 ALT 59 U/L (13-61) 03/30/18 07:00 Alkaline Phosphatase 72 U/L (45-117) 03/30/18 07:00 Total Protein 6.8 g/dl (6.4-8.2) 03/30/18 07:00 Albumin 3.4 g/dl (3.4-5.0) 03/30/18 07:00 Urine Color Ltyellow 03/29/18 11:07 Urine Appearance Clear 03/29/18 11:07 Urine pH 5.0 (5.0-8.0) 03/29/18 11:07 Ur Specific [place] 1.013 (1.001-1.035) 03/29/18 11:07 Urine Protein Negative (NEGATIVE) 03/29/18 11:07 Urine Glucose (UA) Negative (NEGATIVE) 03/29/18 11:07 Urine Ketones Negative (NEGATIVE) 03/29/18 11:07 Urine Blood Negative (NEGATIVE) 03/29/18 11:07 Urine Nitrite Negative (NEGATIVE) 03/29/18 11:07 Urine Bilirubin Negative (<2.0 mg/dL) 03/29/18 11:07 Urine Urobilinogen Negative mg/dL (0.2-1.0) 03/29/18 11:07 Ur Leukocyte Esterase Negative (NEGATIVE) 03/29/18 11:07 RPR Titer Nonreactive (NONREACTIVE) 03/30/18 07:00 LABS NOTED Assessment: 03/30/18 15:48 WITHDRAWAL SX Plan: CONTINUE DETOX
[2018-03-30] MEDS: THIAMINE HCL 100 MG TABLET (FP) PO SCH (22:12)
[2018-03-31] MEDS: chlordiazePOXIDE HCL 25 MG CAPSULE PO SCH (05:52)
[2018-03-31] MEDS: OLANZapine 10 MG TABLET PO SCH (10:45)
[2018-03-31] MEDS: PRENATAL VITAMINS W/ FOLIC ACID TABLET (FP) PO SCH (10:45)
[2018-03-31] MEDS: chlordiazePOXIDE 5 MG CAPSULE PO SCH ×3 (10:46→22:02)
--- NOTE | 2018-03-31 11:08 | EKG ---
Test Reason : Blood Pressure : / mmHG Vent. Rate : 085 BPM Atrial Rate : 085 BPM P-R Int : 154 ms QRS Dur : 092 ms QT Int : 368 ms P-R-T Axes : 065 023 020 degrees QTc Int : 437 ms NORMAL SINUS RHYTHM NONSPECIFIC T WAVE ABNORMALITY ABNORMAL ECG WHEN COMPARED WITH ECG OF 31-AUG-2016 13:25, NO SIGNIFICANT CHANGE WAS FOUND Confirmed by Freddie Keating MD ([id number]) on 03/31/2018 11:07:27 AM Referred By: Zayra Salinas Confirmed By:Freddie Keating MD
[2018-03-31] MEDS: FLUoxetine HCL 10 MG CAPSULE (FP) PO SCH (11:54)
--- NOTE | 2018-03-31 12:21 | PN ---
S CIWA - CIWA Score Nausea/Vomitin-No Nausea/No Vomiting Muscle Tremors: 3 Anxiety: 4-Mod. Anxious/Guarded Agitation: 4-Moderately Restless Paroxysmal Sweats: No Perspiration Orientation: 0-Oriented Tacttile Disturbances: 0-None Auditory Disturbances: 0-None Visual Disturbances: 0-None Headache: 0-None Present CIWA-Ar Total Score: 11 BHS Progress Note (SOAP) Subjective: PATIENT ANXIOUS, GUARDED AND IRRITABLE. Objective: 03/31/18 12:19 Vital Signs Temperature 9707 F H 03/31/18 09:30 Pulse Rate 63 03/31/18 09:30 Respiratory Rate 18 03/31/18 09:30 Blood Pressure 134/87 03/31/18 09:30 O2 Sat by Pulse Oximetry (%) Laboratory Tests 03/29/18 03/30/18 03/30/18 11:07 07:00 07:00 WBC 6.7 RBC 5.23 Hgb 14.8 Hct 46.1 MCV 88.2 MCH 28.3 MCHC 32.1 RDW 14.3 Plt Count 207 MPV 9.3 Sodium 140 Potassium 4.2 Chloride 106 Carbon Dioxide 23 Anion Gap 11 BUN 9 Creatinine 1.1 Creat Clearance w eGFR > 60 Random Glucose 104 Calcium 9.3 Total Bilirubin 0.4 AST 33 ALT 59 Alkaline Phosphatase 72 Total Protein 6.8 Albumin 3.4 Urine Color Ltyellow Urine Appearance Clear Urine pH 5.0 Ur Specific [place] 1.013 Urine Protein Negative Urine Glucose (UA) Negative Urine Ketones Negative Urine Blood Negative Urine Nitrite Negative Urine Bilirubin Negative Urine Urobilinogen Negative Ur Leukocyte Esterase Negative RPR Titer 03/30/18 07:00 WBC RBC Hgb Hct MCV MCH MCHC RDW Plt Count MPV Sodium Potassium Chloride Carbon Dioxide Anion Gap BUN Creatinine Creat Clearance w eGFR Random Glucose Calcium Total Bilirubin AST ALT Alkaline Phosphatase Total Protein Albumin Urine Color Urine Appearance Urine pH Ur Specific [place] Urine Protein Urine Glucose (UA) Urine Ketones Urine Blood Urine Nitrite Urine Bilirubin Urine Urobilinogen Ur Leukocyte Esterase RPR Titer Nonreactive ALERT AND ORIENTED TO NAME AND PLACE AMB AD AMANDA VISIBLE TREMORS +IRRITABLE AND ANXIOUS Assessment: 03/31/18 12:20 ETOH WITHDRAWAL SYNDROME Plan: CONTINUE DETOX ORDERED CONTINUE ORAL FLUIDS CONTINUE TO MONITOR CLINICALLY
[2018-03-31] MEDS: THIAMINE HCL 100 MG TABLET (FP) PO SCH (22:02)
[2018-04-01] MEDS: chlordiazePOXIDE 5 MG CAPSULE PO SCH (05:29)
[2018-04-01 10:09] VITALS: BP 128/88; PULSE 76; TEMP 98.8
[2018-04-01] MEDS: OLANZapine 10 MG TABLET PO SCH (10:11)
[2018-04-01] MEDS: PRENATAL VITAMINS W/ FOLIC ACID TABLET (FP) PO SCH (10:11)
[2018-04-01] MEDS: FLUoxetine HCL 10 MG CAPSULE (FP) PO SCH (10:11)
[2018-04-01] MEDS: chlordiazePOXIDE HCL 10 MG CAPSULE PO SCH ×3 (10:11→22:04)
--- NOTE | 2018-04-01 10:53 | PN ---
Psychiatric Progress Note Vital Signs: Vital Signs Period Temp Pulse Resp BP Sys/Wallace Pulse Ox Last 24 Hr 97.0 F-98.8 F 60-76 18-18 106-138/64-92 Date of Session: 04/01/18 Chief Complaint:: " I was shadow-boxing.Is that a problem ? " HPI: Day 4 of detoxification treatment for this patient admitted to [address] [place] [address] for alcohol + cannabis dependence.Psychiatric re-evaluation is sought to address acting out behavior, reported as yelling, arguing, throwing punches in the air, pacing in hallways and looking intimidating.Behavior did not escalate into physical aggression toward others or destruction of property. Patient is adherent to his prescribed medications. ROS: Patient offers no somatic complaints.Noted as alert, fully oriented, conversant, ambulatory and calm at time of examination. No evidence of a cognitive impairment. Current Medications: Active Medications Generic Name Dose Route Start Last Admin Trade Name Freq PRN Reason Stop Dose Admin Acetaminophen 650 mg 03/29/18 10:24 Tylenol - PO Q4H PRN FEVER Al Hydroxide/Mg Hydroxide 30 ml 03/29/18 10:24 03/31/18 18:09 Mylanta Oral Suspension - PO 30 ml Q6H PRN Administration DYSPEPSIA Chlordiazepoxide HCl 10 mg 04/01/18 11:00 04/01/18 10:11 Librium - PO 04/02/18 05:01 10 mg [id number] RYAN Administration Eucalyptus/Menthol/Phenol/Sorbitol 1 each 03/29/18 10:24 Cepastat Lozenge - MM Q4H PRN SORE THROAT Fluoxetine HCl 10 mg 03/31/18 10:00 04/01/18 10:11 Prozac - PO 10 mg DAILY RYAN Administration Guaifenesin 10 ml 03/29/18 10:24 Robitussin Dm - PO Q6H PRN COUGH Hydroxyzine Pamoate 50 mg 03/29/18 10:24 Vistaril - PO Q4H PRN AGITATION Ibuprofen 400 mg 03/29/18 10:24 Motrin - PO Q6H PRN PAIN LEVEL 4-6 Loperamide HCl 4 mg 03/29/18 10:24 Imodium - PO Q6H PRN DIARRHEA Magnesium Citrate 300 ml 03/29/18 10:24 Citroma - PO Q48H PRN CONSTIPATION Magnesium Hydroxide 30 ml 03/29/18 10:24 Milk Of Magnesia - PO DAILY PRN CONSTIPATION Melatonin 5 mg 03/29/18 22:00 03/30/18 22:13 Melatonin PO 5 mg HS PRN Administration INSOMNIA Nicotine Polacrilex 2 mg 03/29/18 10:24 Nicorette Gum - BUC Q2H PRN NICOTINE REPLACEMENT RX Olanzapine 10 mg 03/31/18 10:00 04/01/18 10:11 Zyprexa - PO 10 mg DAILY RYAN Administration Multivit/Folic Acid/Iron 1 tab 03/30/18 10:00 04/01/18 10:11 Vitamins (Sjr) - PO 1 tab DAILY RYAN Administration Pseudoephedrine/Triprolidine 1 combo 03/29/18 10:24 Actifed - PO TID PRN NASAL CONGESTION Thiamine HCl 100 mg 03/29/18 22:00 03/31/18 22:02 Vitamin B1 - PO 100 mg HS RYAN Administration Medication(s) Change(s): Will raise olanzapine to 15 mg po daily.Depakote is added to the regimen (500 mg po bid).Side effects/benefits of these medications are discussed with the patient during this interview.Mr Avendano is in agreement with this plan of care. Current Side Effect: No Lab tests ordered: No Lab tests reviewed: Yes Provider note:: Case discussed with the nursing staff. Met with the patient.Mr Avendano continues to appear suspicious,somewhat hypervigilant but he is able to sit with functional tester typewriters for a follow-up interview.Fair historian : [facility], use cannabis (K2 on occasion), resides sometimes with his brother, takes olanzapine + prozac " every other day ", sees a psychiatrist at [facility] in the [place] and manages to stay " out of trouble ". Patient reports that he is upset over the of his best friend (shot 18 months ago at a libertarian) and he indicates that this tragedy had reinforced his distrust in people, including doctors and nurses. He aknowledges his belief in vodoo and he thinks that someone " may have dropped a curse " on him.He adamantly denies experiencing hallucinations. Denies suicidal/homicidal ideation. " I will fight back if I am attacked.I don't go around hitting people." Patient states that his relatives have distanced themselves from him because of his behavior (using alcohol and marijuana).Admits to liking this program ([facility]) and he is agreeable to the plan of transitioning to rehabilitation after completion of detoxification." My counselor is working to help me get a rehab program and if it does not work, I will return to my [facility] and get back to [place]." Mr Avendano is made aware of the concern caused by his demeanor on the unit. He reiterates that he has no intent to harm anyone and he promises that he will refrain from " shadowboxing " on the premises.Patient has been monitored in his interaction with his peers.Noted as appropriate during times of telephone use ( waited for his turn, did not abuse his allocated time, engaged in conversation with others). Has approached staff for materials (puzzles,drawing items) to remain active. Strolls in hallways at intervals. Takes naps during the day, particularly after medication times. Personal hygiene remains decent.Patient responds favorably to redirections. Mr Avendano remains somewhat odd, bizarre at times, suspicious of staff but takes his medications. NO escalation since morning intervention.Patient spends a fair amount of time in his room away from others. No evidence of delirium. Paranoid symptomatology is a chronic presentation in this patient known for abusing K2 and alcohol. He is currently back on his medications (at his own request) and, at time of this examination, the patient is posing NO immediate danger to self or others. Mr Avendano can be safely managed on [address]. If escalation overnight, contact the psychiatrist on duty for assistance. Total face to face time:: 90 Mental Status Exam - Mental Status Exam Alert and Oriented to: Time, Place, Person Cognitive Function: Good Patient Appearance: Well Groomed (wearing clean hospital gowns) Mood: Suspicious, Irritable Affect: Blunted Patient Behavior: Suspicious, Distractible, Cooperative (fair historian) Speech Pattern: Clear Voice Loudness: Normal Thought Process: Goal Oriented (able to maintain a coherent relevant conversation) Thought Disorder: Paranoid Ideation, Bizarre Hallucinations: Denies (patient has consistently denied hallucinations in all sensory modalities) Suicidal Ideation: Denies (patient denies suicidal ideation, intent or plan) Homicidal Ideation: Denies (patient denies homicidal ideation, intent or plan) Insight/Judgement: Fair (as evidenced by his response to redirections : he stopped his shadowboxing moves and does not get confrontational with peers or staff) Muscle strength/Tone: Normal Gait/Station: Normal Psychiatric Treatment Plan - Problem List (1) Alcohol dependence with uncomplicated withdrawal Current Visit: Yes Comment: . (2) Cannabis dependence Current Visit: Yes Comment: . (3) Nicotine dependence Current Visit: Yes Qualifiers: Nicotine product type: cigarettes Substance use status: uncomplicated Qualified Code(s): F17.210 - Nicotine dependence, cigarettes, uncomplicated Comment: . (4) Bipolar disorder Current Visit: Yes Qualifiers: Active/Remission status: remission status unspecified Qualified Code(s): F31.9 - Bipolar disorder, unspecified Comment: .
--- NOTE | 2018-04-01 12:40 | PN ---
S Progress Note Note: DNP-APARTMENT GROUNDSKEEPER NOTE Labor Economist recalls knowing this patient from [facility] where he was admitted and treated on the inpatient psychiatric unit in the past. Labor Economist was a part of the clinical team that treated this patient. Labor Economist contacted [facility] and spoke with chief psychiatrist, Dr. Velázquez to gather information as to better manage patient here at [facility] as patient has been exhibiting symptoms of psychosis (very agitated, angry, staring at staff and commercial loan underwriter; as per his peer: patient stated that people was yelling at him and patient was yelling at the air). Patient with pphx of Polysubstance use disorder (K2, cocaine, alcohol and cannabis), SAD, Antisocial disorder. Patient was last admitted to inpatient at [facility] on 02/13/2017 and was last seen in the ER on 02/15/2018 and given zyprexa 5mg with follow up appointment at [facility]. Patient was on zyprexa, depakote and cogentin.
--- NOTE | 2018-04-01 15:26 | PN ---
[facility] Progress Note Note: Patient receiving detox services ETOH dependence. Alert and oriented. Ambulating ad jean-claude. Refused physical exam. Observed doing punching motions in air and became verbally agitated with RN during medication administration, although he did take medication. Detox regimen continued as ordered, Psych consult ordered. Continue to monitor clinically. Vital Signs Temperature 98.8 F 04/01/18 10:09 Pulse Rate 76 04/01/18 10:09 Respiratory Rate 18 04/01/18 10:09 Blood Pressure 128/88 04/01/18 10:09 O2 Sat by Pulse Oximetry (%) Laboratory Tests 03/29/18 03/30/18 03/30/18 11:07 07:00 07:00 WBC 6.7 RBC 5.23 Hgb 14.8 Hct 46.1 MCV 88.2 MCH 28.3 MCHC 32.1 RDW 14.3 Plt Count 207 MPV 9.3 Sodium 140 Potassium 4.2 Chloride 106 Carbon Dioxide 23 Anion Gap 11 BUN 9 Creatinine 1.1 Creat Clearance w eGFR > 60 Random Glucose 104 Calcium 9.3 Total Bilirubin 0.4 AST 33 ALT 59 Alkaline Phosphatase 72 Total Protein 6.8 Albumin 3.4 Urine Color Ltyellow Urine Appearance Clear Urine pH 5.0 Ur Specific [place] 1.013 Urine Protein Negative Urine Glucose (UA) Negative Urine Ketones Negative Urine Blood Negative Urine Nitrite Negative Urine Bilirubin Negative Urine Urobilinogen Negative Ur Leukocyte Esterase Negative RPR Titer 03/30/18 07:00 WBC RBC Hgb Hct MCV MCH MCHC RDW Plt Count MPV Sodium Potassium Chloride Carbon Dioxide Anion Gap BUN Creatinine Creat Clearance w eGFR Random Glucose Calcium Total Bilirubin AST ALT Alkaline Phosphatase Total Protein Albumin Urine Color Urine Appearance Urine pH Ur Specific [place] Urine Protein Urine Glucose (UA) Urine Ketones Urine Blood Urine Nitrite Urine Bilirubin Urine Urobilinogen Ur Leukocyte Esterase RPR Titer Nonreactive
[2018-04-01] MEDS ORDERED: DIVALPROEX SODIUM 500 MG TABLET E.C. PO SCH (22:00)
[2018-04-01] MEDS: THIAMINE HCL 100 MG TABLET (FP) PO SCH (22:04)
[2018-04-02] MEDS: chlordiazePOXIDE HCL 10 MG CAPSULE PO SCH (05:58)
--- NOTE | 2018-04-02 12:49 | DS ---
[facility] Detox Discharge Summary Admission Date: 03/29/18 Discharge Date: 04/02/18 - History Present History: Alcohol Dependence, Cannabis Dependence - Physical Exam Results Vital Signs: Vital Signs Temperature 98.8 F 04/01/18 10:09 Pulse Rate 76 04/01/18 10:09 Respiratory Rate 18 04/02/18 00:30 Blood Pressure 128/88 04/01/18 10:09 O2 Sat by Pulse Oximetry (%) Pertinent Admission Physical Exam Findings: PATIENT COMPLETED DETOX WITH NO ADVERSE EFFECTS. ACCEPTED REHAB REFERRAL TO [facility] BUT REFUSED TO GO THIS MORNING TO REHAB FACILITY. PATIENT STATED TO COUNSELOR, "I AM NOT GOING THERE. I AM GOING HOME." PATIENT REFUSED MORNING VITAL SIGNS PRIOR DISCHARGE. D/C INSTRUCTIONS PROVIDED BY STAFF. - Treatment Hospital Course: Detox Protocol Followed, Detoxed Safely - Medication Discharge Medications: Ambulatory Orders Fluoxetine HCl [Prozac -] 10 mg PO DAILY #30 capsule 09/02/16 Olanzapine [Zyprexa -] 10 mg PO DAILY 03/29/18 Divalproex [Depakote -] 500 mg PO HS #30 tablet.ec 04/01/18 Olanzapine [Zyprexa] 10 mg PO DAILY #30 tablet 04/01/18 - Diagnosis (1) Alcohol dependence with uncomplicated withdrawal Status: Acute
== END 2018-04-02 08:37 | disposition home or self-care (01) | DRG 774 ==
LOC: YASAS 09:11 → Y3N 10:35
PROC: HZ2ZZZZ Detoxification Services for Substance Abuse Treatment (ICD-10-PCS; principal; 2018-03-29)
DX: F10.230 Alcohol dependence with withdrawal, uncomplicated (principal); F14.20 Cocaine dependence, uncomplicated; F12.20 Cannabis dependence, uncomplicated; F16.10 Hallucinogen abuse, uncomplicated; F17.210 Nicotine dependence, cigarettes, uncomplicated; F31.9 Bipolar disorder, unspecified; I10 Essential (primary) hypertension; E78.5 Hyperlipidemia, unspecified; Z87.828 Personal history of other (healed) physical injury and trauma
CPT/HCPCS: 36415; 80053; 81003; 85027; 86593; 93005; 93010